=== PATIENT | female | born 1960 | race Caucasian/White ===

== ENCOUNTER → 2016-12-10 | Outpatient (REF) | payer MEDICARE, MEDICAID ==
[~2016-12-10] MED LIST: EFFE150C PO; KEPP1TAB2 PO; PANT20TA PO; PROA1AER IN; TRAZADONE PO; VERA120T2 PO
== END ==
LOC: M LAB REF 11:34
PROVIDERS: ATTEND Internal Medicine Endocrinology, Diabetes & Metabolism
DX: E04.1 Nontoxic single thyroid nodule (principal)

== ENCOUNTER → 2018-11-09 | Outpatient (REF) | payer OTHER, MEDICAID ==
[~2018-11-09] MED LIST changes: -EFFE150C PO; +EFFE150C2 PO; -PANT20TA PO; +PANT20TA2 PO; -PROA1AER IN; +PROAAER10 IN
[2018-12-03 14:14] LABS: HPV HYBRID CAPTURE II Negative (Negative)
== END ==
LOC: M LAB LCGH 11:39
PROVIDERS: ATTEND Internal Medicine
DX: Z12.4 Encounter for screening for malignant neoplasm of cervix (principal); R87.613 High grade squamous intraepithelial lesion on cytologic smear of cervix (HGSIL)

== ENCOUNTER → 2018-12-15 | Outpatient (REF) | payer MEDICARE, MEDICAID | LOC: M LAB LCGH 09:11 | PROVIDERS: ATTEND Internal Medicine | DX: Z12.4 Encounter for screening for malignant neoplasm of cervix (principal); R31.9 Hematuria, unspecified; R87.619 Unspecified abnormal cytological findings in specimens from cervix uteri ==